=== PATIENT | female | born 1985 | race Caucasian/White ===

== ENCOUNTER 2018-03-23 08:17 | Inpatient (IN) | payer BC ==
[2018-03-23] MEDS ORDERED: CARBOPROST TROME 250 MCG/ML IM PRN ×2 (08:56→16:35)
[2018-03-23] MEDS ORDERED: METHYLERGONOVINE 0.2MG/ML AMP IM PRN ×2 (08:56→16:35)
[2018-03-23] MEDS ORDERED: Ringers Lactate 1,000 ML IV PRN (08:56)
[2018-03-23] MEDS ORDERED: OXYTOCIN/LR 20 UNIT/1,000 ML BAG IV SCH ×2 (09:00→17:00)
[2018-03-23] MEDS ORDERED: Ringers Lactate 1,000 ML IV SCH (09:00)
[2018-03-23 10:16] LABS: RPR Titer ND
[2018-03-23 10:20] LABS: Urine Appearance CLEAR; Urine Bilirubin NEGATIVE (NEG); Urine Blood 1+ (NEG); Urine Color YELLOW; Urine Glucose NEGATIVE (NEG); Urine Protein NEGATIVE (NEG); Urine Specific Gravity 1.015 (1.005-1.030); Urine Urobilinogen 0.2 mg/dL (0.2-1.0)
[2018-03-23 10:23] LABS: Urine Microscopic Reflex ORDER UMIC
[2018-03-23 10:48] LABS: Absolute Lymphocytes (CBC) 1.4 K/uL (0.7-4.9); Absolute Monocytes 0.8 K/uL (0.1-1.3); Absolute Neutrophil 8.8 K/uL (1.8-8.0); Basophils % 0.3 % (0-1.3); Eosinophils % 0.3 % (0-4.4); Hematocrit 37.8 % (36.0-45.0); Lymphocytes % 12.7 % (15.3-44.8); Monocytes % 6.9 % (3.3-12.3); RBC Red Blood Cell Count 3.88 M/uL (3.86-4.86)
[2018-03-23 10:53] LABS: Urine Bacteria <20 /HPF (<20); Urine Culture Reflex Order REFLEXED; Urine Mucus 1+ /HPF (NONE SEEN); Urine RBC <5 /HPF (NONE SEEN)
[2018-03-23 11:26] VITALS: BMI 25.2
[2018-03-23] MEDS ORDERED: ROPIVACAINE HCL 100 ML IV PRN (15:07)
[2018-03-23] MEDS ORDERED: FENTANYL CITR 100 MCG/2 ML IV ONE (15:07)
[2018-03-23] MEDS ORDERED: ROPIVACAINE HCL 0.2% 20ML AMP IV ONE (15:09)
[2018-03-23] MEDS ORDERED: BUTORPHANOL 1 MG/ML INJ ONE (15:21)
[2018-03-23] MEDS ORDERED: LIDOCAINE 1% 20 ML MDV ONE (16:26)
[2018-03-23] MEDS ORDERED: METHYLERGONOVINE 0.2 MG TAB PO PRN (16:35)
[2018-03-23] MEDS ORDERED: ONDANSETRON 4 MG (ODT) TAB PO PRN (16:35)
[2018-03-23] MEDS ORDERED: ACETAMINOPHEN 500 MG TAB PO PRN (16:35)
[2018-03-23] MEDS ORDERED: IBUPROFEN 200 MG TAB PO PRN (16:35)
--- NOTE | 2018-03-23 16:44 | P.BOP ---
Preoperative diagnosis: 38+ wk , prodromal labor Postoperative diagnosis: SCVD viable female infant Primary procedure: SCVD Secondary procedure: repair right labial laceration Estimated blood loss: 200ml Anesthesia: Local Complications: None Condition: Good
[2018-03-24 05:54] LABS: RPR (Rapid Plasma Reagin) NON-REACT (NON-REACT)
[2018-03-24 12:51] VITALS: TEMP 98.5
--- NOTE | 2018-03-24 15:17 | DS ---
Hospital Discharge Diagnosis: [id number] , delivered. Complications: Right labia minora laceration. Procedures: Artificial rupture of membranes, Pitocin augmentation of labor, spontaneous controlled v aginal delivery of viable female , repair of right labial laceration. Hospital Course: The patient is a 32-year-old female, 4, para 2-0-1-2 at a pproximately 38+ weeks gestation, admitted in prodromal labor. She had an uneventful labor and deliv kei of a 7-pound female , 9 and 9. She was dismissed on the first day, ambula tory, on a select diet with routine post vaginal delivery activity restrictions. Lab work included a n admission hemoglobin and hematocrit of 12.8 and 37.8, dismissal of 35.8. She has Rh negative blood type. Did not need to have RhoGAM because infant's blood type was Rh negative. She was dismissed t o continue taking her iron and vitamins with the usual post vaginal delivery activity restri ctions, to be seen back in my office in 1 week. GRUPO/ROOSEVELT Voice ID: [id number] Report ID: [id number]
--- NOTE | 2018-03-24 15:47 | PREOPHP ---
Date of Admission: 03/23/2018 History Of Present Illness: Ms. Villegas is a 32-year-old female, 4, para 2-0- 1-2, now at 38+ weeks' gestation. She has been followed by me during this with complicatio ns of prior child with cystic fibrosis, Rh negative blood type, borderline progesterone with prior mi scarriage, because of this she was supplement with progesterone early. She is admitted in prodromal labor, noted to be 1+ to 2 cm dilated with contractions every 3 to 4 minutes. Past Medical History: Please see record. Family History: Please see record. Review of Systems: She reports no recent cough, cold, fever, or chills. No recent nausea or vomiting. She denies any b reast lumps or breast knots. She denies any bowel or bladder issues. Physical Examination: General: Reveals a pleasant female, in no apparent distress. Neck: Supple without adenopathy or thyromegaly. Lungs: Clear. Cardiac: Regular rate and rhythm without murmurs. Breasts: Not examined. Abdomen: Estimated weight of 7 pounds. Pelvic: Cervix noted to be 2 cm now, 60% effaced, vertex at a -1 station. scalp electrode was placed. Plan: The patient will be augmented with Pitocin as necessary. GRUPO/ROOSEVELT Voice ID: [id number]
--- NOTE | 2018-03-24 17:44 | OP ---
Surgeon: Abilio Cortez MD Ms. Villegas is a 32-year-old female, 4, para 2-0-1-2 at approximately 38+ week s gestation. She is admitted in prodromal labor. Cervix noted to be approximately 2 cm. After rupt ure of membranes, Pitocin augmentation of labor, she had a first stage of labor of 4 hours and 53 min utes, second stage of labor of 6 minutes. She delivered by spontaneous controlled vaginal delivery i n vertex presentation, a 7-pound female infant, 9 and 9, after delayed cord clamping. It was c lamped, cut, and infant placed on mother's upper abdomen. Cord blood was obtained. Placenta was spo ntaneously expelled and appeared to be intact. Intrauterine examination revealed no retained placent al fragments. She suffered a right labia minora laceration, which was repaired in the usual fashion with 3-0 Vicryl suture. Estimated total blood loss was less than 250 cc. She received 1 single mill igram dose of Stadol for analgesia during her labor course. GRUPO/ROOSEVELT Voice ID: [id number] Report ID: [id number]
[2018-03-24] MEDS ORDERED: Tdap (Diph,Pertuss(Acell),Tet Vac) 0.5 ML SYR IMVAC ONE (17:50)
[2018-03-24 18:23] VITALS: BP 118/78
[2018-03-28 04:07] LABS: HBsAG Nonreactive (Nonreactive)
== END 2018-03-24 16:50 | disposition home or self-care (01) | DRG 807 ==
LOC: L&D 08:17 → 2ND-WC 08:48
PROVIDERS: ADMIT Specialist; ATTEND Specialist
PROC: 10E0XZZ Delivery of Products of Conception, External Approach (ICD-10-PCS; principal; 2018-03-24)
PROC: 0UQMXZZ Repair Vulva, External Approach (ICD-10-PCS; 2018-03-24)
PROC: 10907ZC Drainage of Amniotic Fluid, Therapeutic from Products of Conception, Via Natural or Artificial Opening (ICD-10-PCS; 2018-03-24)
DX: O36.0930 Maternal care for other rhesus isoimmunization, third trimester, not applicable or unspecified (principal); Z37.0 Single live birth; O70.0 First degree perineal laceration during delivery; Z3A.38 38 weeks gestation of pregnancy
CPT/HCPCS: 36415; 81003; 81015; 85014; 85025; 85461; 86592; 86850; 86870; 86900; 86901; 87086; 87088; 87340; 90715; J0595; J2210; J2590; J2795; J3010

== ENCOUNTER 2021-10-07 01:43 | Observation (INO) | payer BC, OTHER, SELFPAY ==
--- OUTSIDE RECORDS SUMMARY | 2021-10-07 01:46 | XMS REPORT | Continuity of Care Document ---
:1985 Author Organization [facility] t Address [address] [place] [address] [address]. [address] [place] [address] Care Team Providers Name Role Phone SON QUINONES Primary Care Physician Unavailable Nicci Call MD Attending Clinician NICCI CALL Attending Clinician Unavailable Payers Payer Name Policy Type Policy Number Effective Date Expiration Date S [facility] [id number] 2021 EMPLOYEE PLAN 00:00:00 Problems Condition Condition Condition Status Onset Resolution Last Treating Co mments Source Name Details Category Date Date Treatment Clinician Date Dysplasia Dysplasia Disease Active Uni vers of cervix, of cervix, 08-09 it y of [place] SADE 2 SADE 2 00 Medical Branch ASCUS with ASCUS with Disease Active U nivers positive positive 6-25 [place] HPV HPV 00 [place] cervical cervical Branch Kirk' Kirk' Disease Active U nivers s disease s disease -06 ity of 00:00: [place] 00 Medical Branch 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 kirk 's disease Allergies, Adverse Reactions, Alerts Allergy Allergy Status Severity Reaction(s) Onset Inactive Treating Comm ents Source Name Type Date Date Clinician Fentanyl Propensi Active Nausea Univer s ty to and/or 1-24 ity of adverse Vomiting 00:00: [place] reaction 00 Medical s Branch FENTANYL DRUG Active N/V Univers INGREDI 03-03 ity of 00:00: Medical Branch PENICILL DRUG Active Rash Univers IN INGREDI 07-11 ity of 00:00: Medical Branch Penicill Propensi Active Rash Univer s in ty to 07-11 ity of adverse 00:00: [place] reaction Medical s Branch Social History Social Habit Start Date Stop Date Quantity Comments Source History SDOH University o f Alcohol Comment [place] [facility] ical Branch History SDOH University o f Alcohol Std [place] Medical Drinks Branch History SDOH University o f Alcohol Binge [place] [facility] al Branch Exposure to Not sure [facility] SARS-CoV-2 [place] [facility] (event) Branch Alcohol intake 2021-03-03 2021-03-03 Lifetime University of 00:00:00 00:00:00 non-drinker [place] [facility] (finding) Branch Tobacco use and 2020-07-11 2020-07-11 Never used Universit y of exposure 00:00:00 00:00:00 [place] [facility] Branch History SDOH 2020-07-11 2020-07-11 1 University o f Alcohol Frequency 00:00:00 00:00:00 [facility] edical [place] Sex Assigned At [birth year] Universit y of 00:00:00 00:00:00 [facility] Smoking Status Start Date Stop Date Source Never smoker [facility] Medical Branch Medications Ordered Filled Start Stop Current Ordering Indication Dosage Frequency Signature Comments Components Source Medication Medication Date Date Medication? Clinician (SIG) Name Name levonorgest Yes 1{devic 1 Device Univers reL 7-09 e} by ity of (MIRENA) 20 11:49: Intrauteri [place] mcg/24 30 ne route Medical hours (6 once now. Branch yrs) 52 mg IUD levonorgest Yes 1{devic 1 Device Univers reL 7-09 e} by ity of (MIRENA) 20 11:49: Intrauteri [place] mcg/24 30 ne route Medical hours (6 once now. Branch yrs) 52 mg IUD ibuprofen Yes [id number] 600mg Take 1 Univers 600 mg -09 tablet by ity of tablet 00:00: mouth [place] 00 every 6 Medical (six) Branch hours as needed for Pain (scale 1-3). ibuprofen Yes [id number] 600mg Take 1 Univers 600 mg 7-09 tablet by ity of tablet 00:00: mouth [place] [id number] every 6 Medical (six) Branch hours as needed for Pain (scale 1-3). levothyroxi Yes Univer s ne 25 mcg 5-05 ity of tablet 00:00: [address] levothyroxi Yes Univer s ne 25 mcg 5-05 ity of tablet 00:00: [address] Immunizations Ordered Filled Immunization Date Status Comments Snehal roy Immunization Name Name HPV9 2021-03-03 Completed [facility] 00:00:00 [facility] HPV9 2021-03-03 Completed [facility] 00:00:00 [facility] Influenza Virus 2020-11-22 Completed Universit y of Vaccine 00:00:00 [facility] Influenza Virus 2020-11-22 Completed Universit y of Vaccine 00:00:00 [facility] Vital Signs Vital Name Observation Time Observation Value Comments Source Systolic blood 2021-03-03 16:40:00 127 [facility] Diastolic blood 2021-03-03 16:40:00 87 mm[Hg[facility] Heart rate 2021-03-03 16:40:00 77 /min [facility] Body temperature 2021-03-03 16:40:00 36.72 Paige [facility] Respiratory rate 2021-03-03 16:40:00 16 /min [facility] Body height 2021-03-03 16:40:00 152.4 cm [facility] Body weight 2021-03-03 16:40:00 55.027 kg [facility] BMI 2021-03-03 16:40:00 23.69 kg/m2 [facility] Procedures Procedure Date / Time Performed Performing Clinician Snehal roy GARDASIL 9 (HPV 9V) 2021-03-03 16:51:15 Nicci Call [facility] VACCINE [facility] Encounters Start End Encounter Admission Attending Care Care Encounter Source Date/Time Date/Time Type Type Clinicians Facility Department ID 2021-05-07 2021-05-07 Outpatient R [facility] [id number] Univers 11:00:00 11:00:00 ity of [facility] 2021-03-03 2021-03-03 Office Dwaine Calln [facility] [id number] Univers 10:30:00 11:07:49 Visit STEVE [id number] it y of WOMEN'S [id number] [facility] [id number] [address] 2021-03-03 2021-03-03 Outpatient R JAKUB NICCI [facility] [id number] [facility] 10:30:00 11:07:49 ity of [facility] Results This patient has no known results.
[2021-10-07] MEDS ORDERED: NA CHLORIDE 0.9% 1,000 ML ONE (02:22)
[2021-10-07] MEDS ORDERED: MORPHINE 2 MG/ML SYR ONE (02:22)
[2021-10-07] MEDS ORDERED: ONDANSETRON 4 MG/2 ML VIAL ONE ×2 (02:22→15:00)
[2021-10-07] MEDS ORDERED: FAMOTIDINE 20 MG/2 ML VIAL IV ONE (02:25)
[2021-10-07 02:44] LABS: Absolute Lymphocytes (CBC) 2.2 K/uL (0.7-4.9); Hematocrit 41.5 % (36.0-45.0); Lymphocytes % 34.4 % (15.3-44.8); MCV 90.7 fL (80-100); MPV 8.7 fL (7.6-11.3); RBC Red Blood Cell Count 4.57 M/uL (3.86-4.86)
[2021-10-07 02:56] LABS: Albumin 4.2 g/dL (3.4-5.0); Bilirubin Total 0.5 mg/dL (0.2-1.0); Potassium 3.2 mmol/L (3.5-5.1); Protein, Total 7.6 g/dL (6.4-8.2)
--- NOTE | 2021-10-07 03:05 | ER ---
Nurse's Notes [facility] Name: Chloé Villegas Age: 36 yrs Sex: Female : 1985 Arrival Date: 10/07/2021 Time: 01:45 Bed 5 Private MD: Diagnosis: Epigastric abdominal tenderness;Other cholelithiasis with obstruction;Hypokalemia Presentation: 10/07 01:47 Chief complaint: Patient states: "I having have severe upper abdominal pain. It woke me as6 up". Coronavirus screen: At this time, the client does not indicate any symptoms associated with coronavirus-19. Ebola Screen: No symptoms or risks identified at this time. Initial Sepsis Screen: Does the patient meet any 2 criteria? No. Patient's initial sepsis screen is negative. Does the patient have a suspected source of infection? No. Patient's initial sepsis screen is negative. Risk Assessment: Do you want to hurt yourself or someone else? Patient reports no desire to harm self or others. Onset of symptoms was October 07, 2021. 01:47 Method Of Arrival: Ambulatory as6 01:47 Acuity: OFE 3 as6 Triage Assessment: 01:52 General: Appears uncomfortable, Behavior is calm, cooperative. Pain: Complains of pain as6 in epigastric area. GI: Reports upper abdominal pain. 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 - Social history:: Smoking status: Patient denies any tobacco usage or history of. Screenin:30 Abuse screen: Denies threats or abuse. Nutritional screening: No deficits noted. jb4 Tuberculosis screening: No symptoms or risk factors identified. Fall Risk None identified. Assessment: 02:30 Reassessment: see triage note. jb4 03:30 Reassessment: Patient appears in no apparent distress at this time. Patient and/or jb4 family updated on plan of care and expected duration. Pain level reassessed. Patient is alert, oriented x 3, equal unlabored respirations, skin warm/dry/pink. 04:30 Reassessment: Patient appears in no apparent distress at this time. Patient and/or jb4 family updated on plan of care and expected duration. Pain level reassessed. Patient is alert, oriented x 3, equal unlabored respirations, skin warm/dry/pink. Vital Signs: 01:47 BP 135 / 93; Pulse 76; Resp 18 S; Temp 97.8(O); Pulse Ox 98% on R/A; Weight 54.43 kg as6 (R); Height 5 ft. 2 in. (157.48 cm) (R); Pain 7/10; 03:00 BP 127 / 83; Pulse 78; Resp 16; Pulse Ox 98% on R/A; jb4 04:30 BP 116 / 69; Pulse 79; Resp 16; Pulse Ox 100% on R/A; jb4 01:47 Body Mass Index 21.95 (54.43 kg, 157.48 cm) as6 ED Course: 01:45 Patient arrived in ED. bp1 01:50 Triage completed. as6 01:51 Arm band placed on. as6 01:56 Cristian Sorto MD is Attending Physician. truman 02:07 Moshe Swain, ERWIN is Primary Nurse. as6 02:15 Missed attempt(s): 22 gauge in left forearm. vc1 02:18 Inserted saline lock: 22 gauge in right forearm, using aseptic technique. Blood vc1 collected. 02:30 Patient has correct armband on for positive identification. Bed in low position. Call jb4 light in reach. Side rails up X 1. Client placed on continuous cardiac and pulse oximetry monitoring. NIBP monitoring applied. 02:39 Chest Pa And Lat (2 Views) XRAY In Process Unspecified. EDMS 03:03 Chintan Henriquez MD is Hospitalizing Provider. truman 03:11 US Abdomen Limited In Process Unspecified. EDMS 05:15 No provider procedures requiring assistance completed. Patient admitted, IV remains in jb4 place. Administered Medications: 02:27 Drug: NS 0.9% 1000 ml Route: IV; Rate: 1 bolus; Site: right antecubital; as6 02:27 Drug: morphine 2 mg Route: IVP; Infused Over: 4 mins; Site: right antecubital; as6 02:27 Drug: Zofran (Ondansetron) 4 mg Route: IVP; Site: right antecubital; as6 02:28 Drug: Pepcid (famotidine) 20 mg Route: IVP; Site: right antecubital; as6 03:21 Drug: levofloxacin 750 mg Volume: 150 ml; Route: IVPB; Infused Over: 90 mins; Site: jb4 right antecubital; 04:52 Drug: Lactated Ringers Solution 1000 ml Route: IV; Rate: 150 ml/hr; Site: right jb4 antecubital; Medication: 05:17 VIS not applicable for this client. jb4 Outcome: 03:05 Decision to Hospitalize by Provider. truman 05:15 Admitted to L \\T\\ D, accompanied by tech, via wheelchair, room 276, with chart. jb4 05:15 Condition: stable 05:15 Discharge instructions given to patient, family, Instructed on the need for admit, Demonstrated understanding of instructions. 05:17 Patient left the ED. jb4 Signatures: Dispatcher [employer] EDMS Cristian Sroto MD MD cha Bryson, James, RN RN jb4 Geri Mccauley Ashby, ERWIN RN as6 Lisbeth Otero RN RN vc1
--- NOTE | 2021-10-07 03:06 | EDPHYS ---
Physician Documentation [facility] Name: Chloé Villegas Age: 36 yrs Sex: Female : 1985 Arrival Date: 10/07/2021 Time: 01:45 Bed 5 Private MD: JENIFFER Physician Cristian Sorto HPI: 10/07 02:56 This 36 yrs old Female presents to ER via Ambulatory with complaints of truman Abdominal Pain, Breathing Difficulty. 02:56 The patient has shortness of breath at rest, with light activity. Onset: The truman symptoms/episode began/occurred 1 day(s) ago. Duration: The symptoms are continuous, and are steadily getting worse. The patient's shortness of breath is aggravated by eating, is alleviated by nothing. Associated signs and symptoms: Pertinent positives: chest pain. Severity of symptoms: At their worst the symptoms were mild in the emergency department the symptoms are unchanged. The patient has experienced similar episodes in the past, a few times. 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 - Social history:: Smoking status: Patient denies any tobacco usage or history of. ROS: 03:00 Constitutional: Negative for fever, chills, and weight loss, Eyes: Negative for injury, truman pain, redness, and discharge, ENT: Negative for injury, pain, and discharge, Neck: Negative for injury, pain, and swelling, Cardiovascular: Negative for chest pain, palpitations, and edema, Respiratory: Negative for shortness of breath, cough, wheezing, and pleuritic chest pain, Back: Negative for injury and pain, : Negative for injury, bleeding, discharge, and swelling, MS/Extremity: Negative for injury and deformity, Skin: Negative for injury, rash, and discoloration, Neuro: Negative for headache, weakness, numbness, tingling, and seizure, Psych: Negative for depression, anxiety, suicide ideation, homicidal ideation, and hallucinations, Allergy/Immunology: Negative for hives, rash, and allergies, Endocrine: Negative for neck swelling, polydipsia, polyuria, polyphagia, and marked weight changes, Hematologic/Lymphatic: Negative for swollen nodes, abnormal bleeding, and unusual bruising. 03:00 Abdomen/GI: Positive for abdominal pain, nausea, of the epigastric area. Exam: 03:00 Constitutional: This is a well developed, well nourished patient who is awake, alert, truman and in no acute distress. Head/Face: Normocephalic, atraumatic. Eyes: Pupils equal round and reactive to light, extra-ocular motions intact. Lids and lashes normal. Conjunctiva and sclera are non-icteric and not injected. Cornea within normal limits. Periorbital areas with no swelling, redness, or edema. ENT: Nares patent. No nasal discharge, no septal abnormalities noted. Tympanic membranes are normal and external auditory canals are clear. Oropharynx with no redness, swelling, or masses, exudates, or evidence of obstruction, uvula midline. Mucous membranes moist. Neck: Trachea midline, no thyromegaly or masses palpated, and no cervical lymphadenopathy. Supple, full range of motion without nuchal rigidity, or vertebral point tenderness. No Meningismus. Chest/axilla: Normal chest wall appearance and motion. Nontender with no deformity. No lesions are appreciated. Cardiovascular: Regular rate and rhythm with a normal S1 and S2. No gallops, murmurs, or rubs. Normal PMI, no JVD. No pulse deficits. Respiratory: Lungs have equal breath sounds bilaterally, clear to auscultation and percussion. No rales, rhonchi or wheezes noted. No increased work of breathing, no retractions or nasal flaring. Back: No spinal tenderness. No costovertebral tenderness. Full range of motion. Skin: Warm, dry with normal turgor. Normal color with no rashes, no lesions, and no evidence of cellulitis. MS/ Extremity: Pulses equal, no cyanosis. Neurovascular intact. Full, normal range of motion. Neuro: Awake and alert, GCS 15, oriented to person, place, time, and situation. Cranial nerves II-XII grossly intact. Motor strength 5/5 in all extremities. Sensory grossly intact. Cerebellar exam normal. Normal gait. 03:00 Abdomen/GI: Inspection: distension, that is mild, Bowel sounds: normal, Palpation: mild abdominal tenderness, in the epigastric area, Liver: no appreciated palpable abnormalities, Hernia: not appreciated. Vital Signs: 01:47 BP 135 / 93; Pulse 76; Resp 18 S; Temp 97.8(O); Pulse Ox 98% on R/A; Weight 54.43 kg as6 (R); Height 5 ft. 2 in. (157.48 cm) (R); Pain 7/10; 03:00 BP 127 / 83; Pulse 78; Resp 16; Pulse Ox 98% on R/A; jb4 04:30 BP 116 / 69; Pulse 79; Resp 16; Pulse Ox 100% on R/A; jb4 01:47 Body Mass Index 21.95 (54.43 kg, 157.48 cm) as6 MDM: 02:13 Patient medically screened. truman 03:01 Data reviewed: vital signs, nurses notes. truman 03:02 Differential diagnosis: Anemia Anxiety Reaction reactive airway disease. Antibiotic truman administration: zosyn. The patient's Wells Deep Vein Thrombosis Score was calculated as follows: Total Score: 0-2 Pts- Low Risk. The patient's pulmonary embolism risk score was calculated as follows: Total Score: 0-2 points. This patient was found to be at low risk for a pulmonary embolism by using the Well's assessment criteria. Immunization status:. Data interpreted: child monitor: rate is 76 beats/min, rhythm is regular, Pulse oximetry: on room air is 98 %. Test interpretation: by ED physician or midlevel provider: plain radiologic studies. Counseling: I had a detailed discussion with the patient and/or guardian regarding: the historical points, exam findings, and any diagnostic results supporting the discharge/admit diagnosis, lab results, radiology results, the need for further work-up and treatment in the hospital. 10/07 01:53 Order name: CBC with Diff; Complete Time: 02:54 as6 10/07 01:53 Order name: CMP; Complete Time: 03:16 10/07 01:53 Order name: Lipase; Complete Time: 03:16 10/07 03:13 Order name: SARS RAPID bb 10/07 03:49 Order name: Urine Dipstick-Ancillary; Complete Time: 03:59 EDMS 10/07 03:51 Order name: Urine --Ancillary (enter results) oe 10/07 01:58 Order name: Chest Pa And Lat (2 Views) XRAY [facility] 10/07 02:14 Order name: US Abdomen Limited [facility] 10/07 01:53 Order name: IV Saline Lock; Complete Time: 02:19 as6 10/07 01:53 Order name: Labs collected and sent; Complete Time: 02:19 as Administered Medications: 02:27 Drug: NS 0.9% 1000 ml Route: IV; Rate: 1 bolus; Site: right antecubital; as 02:27 Drug: morphine 2 mg Route: IVP; Infused Over: 4 mins; Site: right antecubital; as6 02:27 Drug: Zofran (Ondansetron) 4 mg Route: IVP; Site: right antecubital; as6 02:28 Drug: Pepcid (famotidine) 20 mg Route: IVP; Site: right antecubital; as6 03:21 Drug: levofloxacin 750 mg Volume: 150 ml; Route: IVPB; Infused Over: 90 mins; Site: jb4 right antecubital; 04:52 Drug: Lactated Ringers Solution 1000 ml Route: IV; Rate: 150 ml/hr; Site: right jb4 antecubital; Disposition Summary: 10/07/21 03:05 Hospitalization Ordered Hospitalization Status: Observation truman Provider: Chintan Henriquez cha Condition: Stable truman Problem: new truman Symptoms: have improved truman Bed/Room Type: Standard [facility] Location: [facility](10/07/21 04:43) mw Room Assignment: [facility]-(10/07/21 04:43) Diagnosis - Epigastric abdominal tenderness truman - Other cholelithiasis with obstruction truman - Hypokalemia truman Forms: - Medication Reconciliation Form truman - SBAR form truman Signatures: Dispatcher [employer] EDMS Amanda Vargas RN RN mw Anderson, Corey, MD MD cha Bryson, James, RN RN jb4 Moshe Swain RN RN as6 Corrections: (The following items were deleted from the chart) 04:43 03:05 Telemetry/MedSurg (observation) truman 04:43 03:05 truman
[2021-10-07] MEDS ORDERED: Levofloxacin 750mg IV 750 MG/150 ML BAG IV ONE (03:22)
[2021-10-07 03:49] LABS: Urine Blood 1+ (Negative); Urine Glucose Negative (Negative); Urine Protein Negative (Negative); Urine Specific Gravity 1.015 (1.005-1.030)
[2021-10-07 04:42] LABS: SARS-CoV-2 Antigen Rapid Res Negative (Negative)
[2021-10-07] MEDS ORDERED: Ringers Lactate 1,000 ML IV ONE ×2 (04:56→13:20)
[2021-10-07 05:29] VITALS: BMI 21.9
[2021-10-07] MEDS ORDERED: ACETAMINOPHEN 500 MG TAB PO PRN (05:29)
[2021-10-07] MEDS: Ringers Lactate 1,000 ML IV SCH ×2 (05:46→21:29)
[2021-10-07] MEDS ORDERED: MORPHINE 4 MG/ML SYR IV PRN (06:30)
[2021-10-07] MEDS: FAMOTIDINE 20 MG/2 ML VIAL IV SCH ×2 (08:30→20:34)
[2021-10-07] MEDS ORDERED: ONDANSETRON 4 MG/2 ML VIAL IV PRN (08:30)
--- NOTE | 2021-10-07 10:18 | P.HP ---
Date of Service: 10/07/21 Chief complaint: Abdominal pain History of present Illness: Patient is a 36-year-old female comes in with multiple episode of biliary colic. The last episode started last night after eating tortilla soup. Patient states that she had epigastric pain radiating to the right upper quadrant and right back. Patient states the pain is associated with bloating. Patient denies diarrhea, constipation or blood per rectum. Patient denies dysuria or hematuria. Patient denies cough, sore throat, runny nose, headaches, dizziness, chest pain, fever or chills. Review of systems: Otherwise unremarkable Past medical history: Hypothyroidism Past surgical history: Negative Allergies: Penicillin and fentanyl Social history: Patient does not smoke or drink alcohol Family history: Noncontributory Vital signs: Stable, afebrile Physical exam: Awake alert oriented x3 Head and neck: No evidence of icterus, cranial nerves II through XII grossly within normal limits, no neck masses, no JVD, throat clear and neck supple Chest: Clear Heart: S1-S2 Abdomen soft, nondistended, positive bowel sounds with right upper quadrant tenderness and minimal rebound with no peritonitis Extremity: Neurovascular intact, nontender Neuro: Nonfocal focal Diagnostic data: Laboratory data reviewed, LFTs are within normal limits and ultrasound shows cholelithiasis Assessment: Acute and chronic cholecystitis and cholelithiasis Plan/recommendation: Admit, n.p.o., IV fluids, IV antibiotics and to the OR for laparoscopic cholecystectomy possible open. Patient understands risk, benefits alternatives and agrees to procedure. CC:
--- NOTE | 2021-10-07 12:41 | RAD REPORT ---
EXAM DESCRIPTION: RAD - Chest Pa And Lat (2 Views) - 10/07/2021 2:37 am CLINICAL HISTORY: 36 years Female SOB COMPARISON: None FINDINGS: Lung volumes adequate. Cardiac silhouette is normal. No pneumothorax. No large pleural effusion. No focal consolidation. No acute bony finding. IMPRESSION: No acute cardiopulmonary findings. Electronically signed by: Florida Flood MD 10/07/2021 2:49 AM CDT Due to temporary technical issues with the PACS/Fluency reporting system, reports are being signed by the in house radiologists without review as a courtesy to insure prompt reporting. The interpreting radiologist is fully responsible for the content of the report.
--- NOTE | 2021-10-07 12:50 | RAD REPORT ---
EXAM DESCRIPTION: US - Abdomen Exam Limited - 10/07/2021 3:09 am CLINICAL HISTORY: The patient is 36 years old and is Female; ABD PAIN, reported negative sonographic Quiñones sign TECHNIQUE: Real-time ultrasound of the right upper quadrant with image documentation. COMPARISON: None FINDINGS: LIVER: Unremarkable. No mass. No intrahepatic bile duct dilation. GALLBLADDER: Multiple intraluminal stones demonstrated within the gallbladder, as well as small vol ume intraluminal sludge. Equivocal gallbladder wall thickening, measuring up to 0.3 cm. No pericholec ystic free fluid or significant gallbladder distention. COMMON BILE DUCT: Common bile duct measures up to 0.5 cm in diameter. No stones. No dilation. IMPRESSION: Cholelithiasis and gallbladder sludge. No sonographic findings to suggest acute cholecys titis. If there is high clinical suspicion for acute cholecystitis, a HIDA scan could be performed to further evaluate. Electronically signed by: Reza Garcia MD 10/07/2021 3:30 AM CDT Due to temporary technical issues with the PACS/Fluency reporting system, reports are being signed by the in house radiologists without review as a courtesy to insure prompt reporting. The interpreting radiologist is fully responsible for the content of the report.
[2021-10-07] MEDS ORDERED: CEFOXITIN SODIUM 1 GM/VIAL ONE (12:56)
[2021-10-07] MEDS ORDERED: MIDAZOLAM HCL 2 MG/2 ML INJ ONE (14:31)
[2021-10-07] MEDS ORDERED: MORPHINE SULFATE/PF 1 MG/ML (10 ML AMP) ONE (14:31)
[2021-10-07] MEDS ORDERED: propofoL 200 MG/20 ML VIAL IV ONE (14:37)
[2021-10-07] MEDS ORDERED: ROCURONIUM 50 MG/5 ML VIAL IV ONE (14:37)
[2021-10-07] MEDS ORDERED: LIDOCAINE 1% MPF 5 ML VIAL ONE (14:37)
[2021-10-07] MEDS ORDERED: MORPHINE 10 MG/ML VIAL ONE (14:38)
[2021-10-07] MEDS ORDERED: GLYCOPYRROLATE 0.2 MG/ML SYR ONE (14:58)
[2021-10-07] MEDS ORDERED: dexAMETHasone 10 MG/ML VIAL ONE (14:58)
[2021-10-07] MEDS ORDERED: KETOROLAC 30 MG/ML INJ ONE (14:58)
[2021-10-07] MEDS ORDERED: NEOSTIGMINE 1 MG/ML -10 ML VIAL ONE (15:00)
[2021-10-07] MEDS ORDERED: DIPHENHYDRAMINE 50 MG/ML VIAL ONE (15:24)
[2021-10-07] MEDS ORDERED: Mastisol Adhesive Liq ONE (15:42)
--- NOTE | 2021-10-07 15:46 | P.OP ---
Date of Service: 10/07/21 Preop diagnosis: Acute and chronic cholecystitis and cholelithiasis Postop diagnosis: Same, umbilical hernia Procedure performed: Laparoscopic cholecystectomy, repair of umbilical hernia Surgeon: Chintan Henriquez MD Bread Distributor: MONICO Jonas Estimated blood loss: Minimal Specimen: Hernia sac and contents, gallbladder Findings: As above Anesthesia: General Complications: None Drains: None Fluids and blood products: Nonapplicable Disposition: Recovery room Operative note:Patient brought to the OR and placed in supine position. General anesthesia begun. Patient prepped and draped in the usual sterile fashion. Marcaine 0.5% infiltrated locally. 15 blade used to make a 1 cm supraumbilical midline incision. There was a umbilical hernia with preperitoneal fat present approximately 1 cm in diameter. Hernia sac and contents were excised and sent to pathology as specimen. The hernia was repaired with the closure of the fascial defect. Subcutaneous tissue divided and fascia identified and divided. #1 Vicryl stay suture placed. Peritoneal cavity entered with sharp and blunt dissection. 12 mm trocar placed into the peritoneal cavity under direct vision. Pneumoperitoneum established. 3 5 mm trochars placed. 1 trocar placed in the epigastric region just to the right of midline. 2 trochars placed in the right subcostal region. Laparoscopy revealed a distended gallbladder consistent with acute cholecystitis. Fundus retracted superiorly. Infundibulum identified and retracted inferolaterally. Sharp and blunt dissection used to identify the cystic duct and the cystic artery. Clips placed and both structures divided. Cautery used to remove the gallbladder from the liver bed. Bleeding on the liver bed controlled with cautery. Gallbladder retrieved through the umbilicus via Endo Catch bag. Right upper quadrant examined. There was no evidence of bleeding or bile leakage appreciated. Subsequently, all trochars removed under direct vision. There was bleeding from the medial subcostal incision. This was easily controlled with 3-0 Vicryl suture utilizing Endo Close. Stay sutures tied to each other to reapproximate the fascial defect. Subcutaneous wounds irrigated and bleeding controlled with cautery. 3-0 chromic used to reapproximate subcutaneous tissue and close skin. Sterile dressing applied. Patient awakened and taken to recovery room in good general condition. CC:
[2021-10-07] MEDS ORDERED: HYDROMORPHONE HCL 1 MG/ML INJ IV PRN (15:47)
[2021-10-07] MEDS ORDERED: HYDROCODONE/APAP 7.5/325 MG TAB PO PRN (15:47)
[2021-10-07 18:03] VITALS: O2SAT 97
[2021-10-07] MEDS ORDERED: Levofloxacin500mg IV 500 MG/100 ML BAG IV SCH (21:00)
[2021-10-08 06:17] LABS: Hematocrit 34.5 % (36.0-45.0); Lymphocytes % 9.1 % (15.3-44.8); MCV 90.7 fL (80-100); MPV 8.6 fL (7.6-11.3)
[2021-10-08 08:26] VITALS: BP 108/71; TEMP 97.4
--- NOTE | 2021-10-08 08:42 | DS ---
Date of Discharge: 10/08/2021 Admitting Diagnoses: Acute and chronic cholecystitis and cholelithiasis. Discharge Diagnoses: Acute and chronic cholecystitis and cholelithiasis. Procedure Performed: Laparoscopic cholecystectomy. Hospital Course: Patient is a 36-year-old, who underwent the aforementioned procedure. Postoperativ azul, she is tolerating diet, ambulating, pain controlled with p.o. pain medication, afebrile. The pa tient will be discharged to home. Disposition: Home. Condition: Stable. Discharge Instructions: Resume home medications and diet. Activity as tolerated. No heavy lifting. Remove outer dressing in a.m. and shower. Keep wound clean and dry. Follow up in my office in 1 w [id number]. Call for appointment. Tylenol No. 3 one tablet p.o. q.4 p.r.n. pain, Cipro 500 mg p.o. q.12. /MODL Voice ID: [id number] Report ID: [id number]
== END 2021-10-08 08:40 | disposition home or self-care (01) ==
LOC: ER 01:43 → ERHOLD 03:32 → 2ND-WC 04:49
PROVIDERS: ADMIT Surgery; ATTEND Surgery
PROC: 0WQF0ZZ Repair Abdominal Wall, Open Approach (ICD-10-PCS; 2021-10-07)
PROC: 0FT44ZZ Resection of Gallbladder, Percutaneous Endoscopic Approach (ICD-10-PCS; principal; 2021-10-07 14:15)
DX: K80.12 Calculus of gallbladder with acute and chronic cholecystitis without obstruction (principal); K42.9 Umbilical hernia without obstruction or gangrene; E03.9 Hypothyroidism, unspecified; E87.6 Hypokalemia; Z88.0 Allergy status to penicillin; Z88.5 Allergy status to narcotic agent; Z20.822 Contact with and (suspected) exposure to COVID-19
CPT/HCPCS: 47562; 49587; 85025 ×2; 36415 ×2; 88302; 88304; 81003; 83690; 80053; 71046; 76705; 94010; 96375; 96374; 99285; 87811; J2704; J2710; J1200; J2250; J1100; J2270; J7120 ×4; J7030; J0694; J2405 ×2; G0378